=== PATIENT | male | born 1970 | race American Indian/Alaskan Native ===

== ENCOUNTER 2021-02-20 09:15 | Day surgery (SDC) | payer OTHER ==
[~2021-02-20 09:15] MED LIST: ACETAMINOPHEN 500 MG TAB PO SCH; CELECOXIB 200 MG CAP PO NR; GABAPENTIN 300 MG CAP PO NR; LACTATED RINGERS 1,000 ML IV SCH; MIDAZOLAM 2 MG/2 ML INJ IV NR; ceFAZolin/STERILE WATER 2 GM/20 ML SYRINGE IV NR
[2021-02-20] MEDS ORDERED: BACTERIOSTATIC SODIUM CHLORIDE 0.9% 30 ML VIAL INFILTRATI ONE (09:39)
[2021-02-20] MEDS ORDERED: BUPIVACAINE/PF (0.25%) 2.5 MG/ML 30 ML VIAL INFILTRATI ONE ×2 (09:54→12:17)
[2021-02-20] MEDS ORDERED: LIDOCAINE (1%) 10 MG/1 ML VIAL 20 ML MDV ONE (09:55)
--- NOTE | 2021-02-20 10:29 | Anesthesia Consultation ---
Anesthesia Consult and Med Hx Date of service: 02/20/21 - Airway Anesthetic Teeth Evaluation: Dentures, Partials ROM Head & Neck: Adequate Mental/Hyoid Distance: Adequate Mallampati Class: Class II Intubation Access Assessment: Good - Pulmonary Exam CTA: Yes - Cardiac Exam Cardiac Exam: RRR - Pre-Operative Health Status ASA Pre-Surgery Classification: ASA2 Proposed Anesthetic Plan: General - Pulmonary Hx Smoking: No Hx Asthma: Yes ( TEEN ONLY) Hx Sleep Apnea: No (OAS PRE SCREEN LOW RISK) - Cardiovascular System Hx Hypertension: No - Central Nervous System Hx Psychiatric Problems: No - Hematic Hx Anemia: No - Other Systems Hx Cancer: Yes
--- NOTE | 2021-02-20 10:30 | Anesthesia Day of Surgery ---
Anesthesia Day of Surgery - Day of Surgery Patient Examined: Yes Patient H&P Reviewed: Yes Patient is NPO: Yes
[2021-02-20] MEDS ORDERED: propofoL 200 MG/20 ML VIAL IV ONE (11:48)
[2021-02-20] MEDS ORDERED: fentaNYL 100 MCG/2 ML INJ ONE (11:49)
[2021-02-20] MEDS ORDERED: MIDAZOLAM 2 MG/2 ML INJ ONE (11:49)
[2021-02-20] MEDS ORDERED: SODIUM CHLORIDE 0.9% IRR 1,500 ML BOTTLE IR ONE (12:18)
[2021-02-20] MEDS ORDERED: LIDOCAINE (1%) 10 MG/1 ML VIAL 20 ML MDV INFILTRATI ONE ×2 (12:18)
[2021-02-20] MEDS ORDERED: ONDANSETRON 4 MG/2 ML INJ ONE (12:26)
[2021-02-20] MEDS ORDERED: KETOROLAC 30 MG/1 ML INJ ONE (12:26)
[2021-02-20] MEDS ORDERED: dexAMETHasone 20 MG/5 ML VIAL ONE (12:26)
--- NOTE | 2021-02-20 12:52 | Short Stay Summary ---
Short Stay Documentation Date of service: 02/20/21 - History Principal diagnosis: UMBILICAL HERNIA H&P: obtained from office - Allergies and Medications Current Medications: Allergies shellfish derived Allergy (Verified 02/18/21 11:23) Anaphylaxis Home Medications Medication Instructions Recorded Confirmed Last Taken Type No Known Home Medications [No 02/18/21 02/18/21 Unknown History Reported Home Medications] Active Medications Acetaminophen (Acetaminophen 500 Mg Tab) 1,000 mg PO PREOP LUCRECIA Last Admin: 02/20/21 09:51 Dose: 1,000 mg Documented by: Cefazolin Sodium (Cefazolin/Sterile Water 2 Gm/20 Ml Syringe) 2 gm IV PREOP NR Stop: 02/20/21 21:00 Celecoxib (Celecoxib 200 Mg Cap) 200 mg PO PREOP NR Stop: 02/20/21 23:59 Last Admin: 02/20/21 09:50 Dose: 200 mg Documented by: Gabapentin (Gabapentin 300 Mg Cap) 300 mg PO PREOP NR Stop: 02/20/21 23:59 Last Admin: 02/20/21 09:51 Dose: 300 mg Documented by: Lactated Ringer's (Lactated Ringers) 1,000 mls @ 100 mls/hr IV DIRECT LUCRECIA Stop: 02/20/21 23:59 Last Admin: 02/20/21 09:45 Dose: 100 mls/hr Documented by: Midazolam HCl (Midazolam 2 Mg/2 Ml Inj) 2 mg IV PREOP NR Stop: 02/20/21 23:59 - Brief post op/procedure progress note Date of procedure: 02/20/21 Pre-op diagnosis: umbilical hernia Post-op diagnosis: same Procedure: open primary umbilical hernia repair Anesthesia: GETA, local Findings: 0.5 cm hernia defect at umbilicus with small amount of preperitoneal fat Surgeon: DAVID AUGUSTE Estimated blood loss: minimal Pathology: none Condition: stable - Hospital course Hospital course: Pt observed in PACU and discharged to home in stable condition when criteria met - Disposition Condition at discharge: Good Disposition: 01 HOME / SELF CARE / HOMELESS Short Stay Discharge Plan Activity: other (no heavy lifting x 4-6 weeks) Diet: regular Wound: open to air, per your surgeon's advice Additional Instructions: SEE PRINTED DISCHARGE INSTRUCTIONS Follow up with: PRIMARY CARE,MD [Primary Care Provider] - 7 Days DAVID AUGUSTE DO [Staff Physician] - 14 Days Prescriptions: HYDROcodone/APAP 5-325 [[place] 5/325] 1 each PO Q6H PRN #20 tablet PRN Reason: Pain , Severe (7-10)
[2021-02-20] MEDS ORDERED: HYDROmorphone 1 MG/1 ML INJ IV PRN (13:03)
[2021-02-20] MEDS ORDERED: ONDANSETRON 4 MG/2 ML INJ IV PRN (13:03)
[2021-02-20] MEDS ORDERED: oxyCODONE /ACETAMINOPHEN 5-325MG TAB PO PRN (13:03)
[2021-02-20 14:21] VITALS: BP 124/82
--- NOTE | 2021-02-20 14:49 | Post Anesthesia Evaluation ---
- Post Anesthesia Evaluation Patient Participated: Yes Airway Patent: Yes Stable Respiratory Function: Yes Nausea/Vomiting: No Temp > 96.8F: Yes Pain Manageable: Yes Adequeate Hydration: Yes Anesthesia Complications: No
--- NOTE | 2021-02-20 20:54 | Operative Report ---
Operative Report Operative Report: Date of procedure: 02/20/21 Pre-op diagnosis: umbilical hernia Post-op diagnosis: same Procedure: open primary umbilical hernia repair Anesthesia: GETA, local Findings: 0.5 cm hernia defect at umbilicus with small amount of preperitoneal fat Surgeon: DAVID AUGUSTE Estimated blood loss: minimal Pathology: none Condition: stable Hospital course: Pt observed in PACU and discharged to home in stable condition when criteria met HPI and indication: 50 yo M with symptomatic umbilical hernia who was seen in the surgery clinic. It was recommended that the hernia be repaired. The defect was very small and so it was recommended the hernia be repair open. All risks, benefits, alternatives to surgery discussed and questions answered. Consent obtained. Procedure in detail: Patient identified in preoperative area and taken back to o perating room and placed on the operating room table in supine position. After anesthesia was induced, the abdomen was prepped and draped in sterile fashion. A time out was performed. Local anesthetic was infiltrated into the skin at the intended incision site. An infraumbilical semilunar incision was made using a 15 blade. Dissection carried out through subcutaneous tissue using electrocautery until the fascia was encountered. The hernia sac was dissected from the umbilicus using a hemostat and cautery. The hernia contained a small amount of preperitoneal fat which was dissected circumfrentially from the fascia and reduced. The hernia defect measured approximately 5mm. This was repaired primarily with #1 prolene figure of 8 stitch. The subcutaneous tissue was irrigated and hemostasis ensured. The umbilicus was tacked to the fascia using an interrupted 3-0 vicryl stitch. The deep dermal layer was closed using 3-0 vicryl stitches. The skin was approximated using 4-0 monocryl subcuticular running stitch and skin glue. Once the glue was dry, a balled up 4x4 gauze was placed at the umbilicus and tegaderm. At the end of the case, all sponge, instrument, sharp counts were correct x2. T he patient was awoken from anesthesia, extubated and taken to PACU in stable condition.
== END 2021-02-20 09:16 | disposition home or self-care (01) ==
LOC: OR 09:15
PROVIDERS: ATTEND Surgery
DX: K42.9 Umbilical hernia without obstruction or gangrene (principal); K64.4 Residual hemorrhoidal skin tags; J45.909 Unspecified asthma, uncomplicated; E78.00 Pure hypercholesterolemia, unspecified; Z79.899 Other long term (current) drug therapy; Z98.890 Other specified postprocedural states; Z20.822 Contact with and (suspected) exposure to COVID-19
CPT/HCPCS: 49585; J0690; J1100; J1885; J2250; J2405; J2704; J3010; J7120; U0003